=== PATIENT | male | born 1980 | race African-American/Black ===

== ENCOUNTER 2020-09-02 10:34 | Emergency (ER) | payer MEDICAID, OTHER ==
[~2020-09-02] VITALS: Ht 180.3 cm; Wt 86.2 kg
[2020-09-02 11:25] LABS: Albumin 3.8 g/dL (3.4-5.0); Anion Gap 4 (5-15); Blood Urea Nitrogen 16 mg/dL (7-18); Calcium 9.1 mg/dL (8.5-10.1); Carbon Dioxide 27 mmol/L (21-32); Chloride 108 mmol/L (98-107); Glucose 90 mg/dL (74-106); Potassium 4.2 mmol/L (3.5-5.1); Sodium 139 mmol/L (136-145)
[2020-09-02 11:31] LABS: Alanine Aminotransferase 30 U/L (16-61); Alkaline Phosphatase 77 U/L (45-117); Aspartate Aminotransferase 14 U/L (15-37); BUN/Creatinine Ratio 14.8; Bilirubin, Total 0.6 mg/dL (0.2-1.0); GFR African American 96 mL/min; GFR Non-African American 80 mL/min; Total Protein 7.8 g/dL (6.4-8.2)
[2020-09-02 11:33] LABS: Basophils # (auto) 0.1 10 ^3/uL (0-0.2); Basophils % (auto) 1.4 % (0.0-2.0); Eosinophils # (auto) 0.3 10 ^3/uL (0-0.8); Eosinophils % (auto) 7.9 % (0.0-7.0); Hematocrit 45.6 % (41.0-53.0); Hemoglobin 15.8 g/dL (13.5-17.5); Lymphocytes # (auto) 1.4 10 ^3/uL (0.4-5.4); Lymphocytes % (auto) 35.7 % (10.0-50.0); Mean Corpuscular Hgb Conc. 34.6 g/dL (32.0-36.0); Mean Corpuscular Volume 89.6 fL (80.0-100.0); Monocytes # (auto) 0.4 10 ^3/uL (0-1.3); Monocytes % (auto) 10.1 % (0.0-12.0); Neutrophils # (auto) 1.7 10 ^3/uL (1.6-8.6); Neutrophils % (auto) 44.9 % (37.0-80.0); Red Blood Cells 5.09 10^6/uL (4.5-5.90); Red Cell Distribution Width 13.4 % (11.8-14.3); White Blood Cell 3.8 10^3/uL (4.4-10.8)
[2020-09-02 12:55] LABS: Urine WBC None Seen /hpf (0 - 3)
[2020-09-02 13:15] LABS: Urine Bacteria NONE SEEN /hpf (None Seen); Urine Blood Negative /uL (Negative); Urine Specific Gravity 1.015 (1.001-1.035)
[2020-09-02 14:07] LABS: Amphetamine Screen, Urine NEGATIVE (NEGATIVE); Barbiturate Scree,Urine NEGATIVE (NEGATIVE); Benzodiazephine Screen, Urine NEGATIVE (NEGATIVE); Cannabinoid Screen, Urine POSITIVE (NEGATIVE); Cocaine Screen, Urine NEGATIVE (NEGATIVE); Opiate Scree,Urine NEGATIVE (NEGATIVE); Phencyclidine Screen, Urine NEGATIVE (NEGATIVE)
[2020-09-02] MEDS ORDERED: ASPirin 81 mg TAB PO ONE (16:15)
[2020-09-02] MEDS ORDERED: IOHEXOL 350 MG/ML 100ML IJ ONE (19:04)
[2020-09-02 21:32] VITALS: BP 153/100
== END 2020-09-02 21:53 | disposition home or self-care (01) ==
LOC: ER 10:34
DX: R07.89 Other chest pain (principal); I10 Essential (primary) hypertension; F17.210 Nicotine dependence, cigarettes, uncomplicated
CPT/HCPCS: 36415; 71046; 71275; 80053; 80307; 81001; 84484; 85025; 85379; 99285; Q9967; 93005